=== PATIENT | female | born 1955 | race Caucasian/White ===

== ENCOUNTER 2019-05-11 05:45 | Day surgery (SDC) | payer BC ==
[2019-05-09 14:16] LABS: BASOPHILS 0.5 % (0-2); HEMATOCRIT 35.6 % (36.0-48.0); HEMOGLOBIN 12.2 g/dL (12-16); IMMATURE GRANULOCYTES 0.2 % (0-5); LYMPHOCYTES 28.3 % (15-50); MCH 30.7 pg (26.0-34.0); MCHC 34.3 g/dL (31.0-37.0); MCV 89.7 fL (80.0-100.0); MEAN PLATELET VOLUME 9.4 fL (7.4-10.4); MONOCYTES 11.5 % (2-11); NEUTROPHILS 55.5 % (40-80); PLATELET COUNT 301 10x3/uL (130-400); RBC 3.97 10x6/uL (4.00-5.40); RDW 12.9 % (11.5-14.5); WBC 5.7 10x3/uL (4.8-10.8)
[~2019-05-11] VITALS: Ht 175.3 cm; Wt 75.0 kg
[~2019-05-11 05:45] MED LIST: ADDERALL 20 MG20 M1 PO; GABAPENTIN100 MG PO; LEVOTHYROXINE100 MCG PO; METFORMIN HCL500 M1 PO; OMEPRAZOLE CAP 20M PO; PROZAC20 MG PO; VALTREX1000 MG PO
[2019-05-11 06:45] VITALS: BP 112/65; Ht 175.3 cm; Wt 75.0 kg
--- NOTE | 2019-05-11 07:02 | NUR ---
DR RAYGOZA NOTIFIED AND REVIEWED PATIENT'S BEHAVIOR AND ASSESSMENT RESULTS. PT IS A LOW RISK PER DR RAYGOZA. DR RAYGOZA STATED TO GIVE RESOURCES TO PATIENT AT TIME OF DISCHARGE. NO FURTHER ORDERS AT THIS TIME. RESOURCES REVIEWED WITH PATIENT AND SHE VERBALIZED UNDERSTANDING.
--- NOTE | 2019-05-11 09:18 | NUR ---
0915 [facility] DIET SERVED.
--- NOTE | 2019-05-11 09:22 | NUR ---
0339 DR. URIBE ROUNDS WITH PT. AND PT'S SISTER.
--- NOTE | 2019-05-11 13:41 | OP ---
PATIENT NAME: BRITANY CANTU MEDICAL RECORD: [id number] :57 LOCATION:D.[facility] ADMISSION DATE: SURGEON: HANNAH URIBE DO DATE OF OPERATION: 05/11/2019 PREOPERATIVE DIAGNOSIS: Thickened endometrium. POSTOPERATIVE DIAGNOSIS: Atrophic endometrium. PRIMARY SURGEON: Hannah Uribe DO ANESTHESIA: Ray Medina PROCEDURE: Hysteroscopy, dilation and curettage. FINDINGS: Normal appearing external genitalia, normal appearing vaginal vault. Uterus sounded to 6 cm. Atrophic endometrium, normal appearing right fallopian tube ostia, left fallopian tube ostia not visualized due to small adhesions. SPECIMENS: Endometrial curettings. ESTIMATED BLOOD LOSS: Less than 5 cc. FLUIDS: 800 cc. URINE OUTPUT: 50 cc. COMPLICATIONS: None. CONDITION: Stable. DESCRIPTION OF PROCEDURE: The risks, benefits, alternatives and indications of the procedure were discussed with the patient. She voiced understanding of the procedure and signed the consent. She was taken to the OR where general anesthesia was administered and found to be adequate. She was placed in the dorsal lithotomy position. She was prepped and draped in the normal sterile fashion. A speculum was placed in the posterior aspect of the vagina and a single tooth tenaculum was used to grasp the anterior lip of the cervix. The uterus was sounded to 6 cm. The cervix was dilated with Doug dilators to accommodate the hysteroscope. Hysteroscope was inserted into the uterus and atrophic endometrium was visualized. No fibroids. Normal appearing right fallopian tube ostia and left fallopian tube was not able to be visualized due to small adhesions. The hysteroscope was removed from the uterus and the cervix was further dilated to accommodate a sharp curette. A gentle sharp curettage was performed and endometrial curettings were sent to pathology. The tenaculum was removed and the tenaculum site was inspected and noted to be hemostatic. All instruments were removed from the vagina. Hemostasis was adequate. All lap, sponge, and instrument counts were correct times 2. The patient tolerated the procedure well. She was awakened and taken to the recovery room in stable condition. TRANSINT:[id number] Voice Confirmation ID: [id number] DOCUMENT ID: [id number] OPERATIVE REPORT [id number] BRITANY CANTU HANNAH URIBE DO at 1341 CC: [id number] DICTATION DATE: 05/11/19 0827 FACILITIES SUPERVISOR: 05/11/19 0851 [facility] [place] 05/11/19 [id number] [place] [id number]
== END 2019-05-11 10:50 | disposition home or self-care (01) ==
LOC: D.OPS 05:45 → D.PAN 07:30 → D.OPS 10:50
PROVIDERS: ATTEND Student in an Organized Health Care Education/Training Program
DX: N85.8 Other specified noninflammatory disorders of uterus (principal); Z01.812 Encounter for preprocedural laboratory examination